=== PATIENT | female | born 1965 | race Caucasian/White ===

== ENCOUNTER → 2018-02-04 | Outpatient (CLI) | payer OTHER ==
[~2018-02-04] MED LIST: CEP500 PO; CLON-327 PO; DETROL PO; ESC10 PO; ESOM40CA42 PO; FAM20 PO; HYDR-317 PO; IBU600 PO; IBUP800T37 PO; LAMO200T46 PO; LEVO1TAB30 PO; LOR5/325 PO; PANT40TA13 PO; PHENA200 PO; PROP10TA58 PO; TRAZ50TA34 PO
--- NOTE | 2018-02-04 17:04 | RADIOLOGY IMAGING REPORT ---
FACILITY: [facility] [place] PATIENT NAME: Ramila Cook : 1965 MR: [id number] V: [id number] EXAM DATE: ORDERING PHYSICIAN: SHAYLA HARRELL TECHNOLOGIST: Location: [facility] [place] Patient: Ramila Cook : 1965 Visit/Account:[id number] Date of Sevice: 02/04/2018 PELVIC HISTORY: Uterine enlargement TECHNIQUE: Transabdominal and transvaginal ultrasound pelvis. COMPARISON: None. FINDINGS: Uterus: ; 10.6 cm length x 5.6 cm AP x 6.8 cm transverse. Myometrium: Heterogeneous with multiple heterogeneous nodules which may represent fibroids. The larg est is posterior measuring 3.3 cm in diameter Endometrium: The endometrium appears heterogeneous; double thickness $1.470 mm. Cervix: Bloating cysts. Ovaries: Right - not visualized Left - not visualized Adnexa: Grossly unremarkable. Free pelvic fluid: None. IMPRESSION: Both the myometrium and endometrium appear heterogeneous. There are multiple heterogeneous nodules w ithin the myometrium likely representing fibroids. The largest is 3.3 centers in diameter Nabothian cysts Neither ovary was visualized Report Dictated By: Teagan Benavides MD at 02/04/2018 4:56 PM Report E-Signed By: Teagan Benavides MD at 02/04/2018 5:00 PM WSN:[email or web address]
== END ==
LOC: US 00:55
PROVIDERS: ATTEND Family Medicine
DX: D25.9 Leiomyoma of uterus, unspecified (principal); N88.8 Other specified noninflammatory disorders of cervix uteri
CPT/HCPCS: 76856

== ENCOUNTER → 2018-12-19 | Outpatient (CLI) | payer OTHER ==
[~2018-12-19] MED LIST changes: -TRAZ50TA34 PO; +TRAZ50TA52 PO
== END ==
LOC: US 03:53
PROVIDERS: ATTEND Family Medicine
DX: R01.1 Cardiac murmur, unspecified (principal)
CPT/HCPCS: 93306